=== PATIENT | male | born 1995 | race Caucasian/White ===

== ENCOUNTER 2017-02-24 00:24 | Emergency (ER) | payer BC ==
--- NOTE | 2017-02-24 00:40 | EDPHY ---
H & P Stated Complaint: intentional lac to L arm. hx bipolar Time Seen by Provider: 02/24/17 00:33 HPI/ROS: CHIEF COMPLAINT: Lacerations HISTORY OF PRESENT ILLNESS: The patient is a 21-year-old man with history of bipolar comes to the emergency department with several abrasions to his left forearm. He states that he was cutting himself to release pain. He denies suicidal ideation. He denies recent drug or alcohol use. He denies any recent illness. He states that he would like to a therapist. He States that he is taking his medications as prescribed which include Klonopin, Seroquel and lithium. REVIEW OF SYSTEMS: Constitutional: denies: chills, fever, recent illness, recent injury EENTM: denies: blurred vision, double vision, nose congestion Respiratory: denies: cough, shortness of breath Cardiac: denies: chest pain, irregular heart rate, lightheadedness, palpitations Gastrointestinal/Abdominal: denies: abdominal pain, diarrhea, nausea, vomiting, blood streaked stools Genitourinary: denies: dysuria, frequency, hematuria, pain Musculoskeletal: denies: joint pain, muscle pain Skin: See HPI Neurological: denies: headache, numbness, paresthesia, tingling, dizziness, weakness Hematologic/Lymphatic: denies: blood clots, easy bleeding, easy bruising Immunologic/allergic: denies: HIV/AIDS, transplant EXAM: GENERAL: Well-appearing, well-nourished and in no acute distress. HEAD: Atraumatic, normocephalic. EYES: Pupils equal round and reactive to light, extraocular movements intact, sclera anicteric, conjunctiva are normal. ENT: TMs normal, nares patent, oropharynx clear without exudates. Moist mucous membranes. NECK: Normal range of motion, supple without lymphadenopathy or JVD. LUNGS: Breath sounds clear to auscultation bilaterally and equal. No wheezes rales or rhonchi. HEART: Regular rate and rhythm without murmurs, rubs or gallops. ABDOMEN: Soft, nontender, normoactive bowel sounds. No guarding, no rebound. No masses appreciated. BACK: No CVA tenderness, no spinal tenderness, step-offs or deformities EXTREMITIES: Normal range of motion, no pitting or edema. No clubbing or cyanosis. NEUROLOGICAL: Cranial nerves II through XII grossly intact. Normal speech, normal gait. 5/5 strength, normal movement in all extremities, normal sensation PSYCH: Depressed affect SKIN: Several abrasions and minor lacerations to left forearm, none that require suturing.. Source: Patient Exam Limitations: No limitations - Personal History Current Tetanus/Diphtheria Vaccine: Unsure Current Tetanus Diphtheria and Acellular Pertussis (TDAP): Unsure - Medical/Surgical History Hx Asthma: No Hx Chronic Respiratory Disease: No Hx Diabetes: No Hx Cardiac Disease: No Hx Renal Disease: No Hx Cirrhosis: No Hx Alcoholism: No Hx HIV/AIDS: No Hx Splenectomy or Spleen Trauma: No Other PMH: bipolar - Social History Smoking Status: Current some day smoker Alcohol Use: Sober Drug Use: None Constitutional: Initial Vital Signs Temperature (C) 36.6 C 02/24/17 00:25 Heart Rate 97 02/24/17 00:25 Respiratory Rate 18 02/24/17 00:25 Blood Pressure 144/73 H 02/24/17 00:25 O2 Sat (%) 94 02/24/17 00:25 O2 Delivery Mode Room Air Allergies/Adverse Reactions: No Known Allergies Allergy (Unverified 02/24/17 00:29) Home Medications: Medication Instructions Recorded CLONAZEPAM 02/24/17 [place] 02/24/17 Seroquel 02/24/17 Medical Decision Making [facility] They agree that he does not meet criteria for a hold. Patient is much more calm now. He states that he would never harm himself. He has contracted for safety. His dad will be here in the morning to be with him. He is flying from [place]. His wounds were cleaned and dressed. He has trouble with anxiety and thinks that he was overwhelmed tonight. He was not trying to kill himself. He has been given resources. Mental health also spoke with the patient's father who agrees with this plan. Differential Diagnosis: Partial list of the Differential diagnosis considered include but were not limited to; depression, anxiety, abrasions, lacerations, intoxication and although unlikely based on the history and physical exam, I also considered , suicidal, homicidal,. I discussed these differential diagnoses and the plan with the patient as well as the usual and expected course. The patient understands that the diagnosis is provisional and that in medicine we are not always correct and that further workup is often warranted. Usual and customary warnings were given. All of the patient's questions were answered. The patient was instructed to return to the emergency department should the symptoms at all worsen or return, otherwise to followup with the physician as we discussed. Departure - Departure Disposition: Home, Routine, Self-Care Clinical Impression: Abrasion, Anxiety, Bipolar 1 disorder Condition: Fair Instructions: Abrasion (ED), Anxiety (ED) Referrals: [facility] Darnell,. [Clinic] - As per Instructions
[2017-02-24 02:27] VITALS: BP 119/58; PULSE 95; RESP 20; TEMP 98.8; O2SAT 91
== END 2017-02-24 02:27 | disposition home or self-care (01) ==
DX: S50.812A Abrasion of left forearm, initial encounter (principal); F41.9 Anxiety disorder, unspecified; F31.9 Bipolar disorder, unspecified; F17.200 Nicotine dependence, unspecified, uncomplicated; W45.8XXA Other foreign body or object entering through skin, initial encounter